=== PATIENT | female | born 1930 | race Caucasian/White ===

== ENCOUNTER 2018-10-03 22:31 | Emergency (ER) | payer MEDICARE, MEDICAID ==
[~2018-10-03] VITALS: Ht 157.5 cm; Wt 48.2 kg
[2018-10-03] MEDS ORDERED: albuterol 2.5 MG/3 ML nebule NEB ONE (22:40)
[2018-10-03] MEDS ORDERED: predniSONE 20 mg tablet PO ONE (22:40)
[2018-10-03 23:27] VITALS: BP 153/63
[2018-10-03] MEDS ORDERED: PRED20TA PO (23:34)
== END 2018-10-03 23:54 | disposition home or self-care (01) ==
LOC: ER 22:32
DX: J44.1 Chronic obstructive pulmonary disease with (acute) exacerbation (principal); Z87.891 Personal history of nicotine dependence; Z95.0 Presence of cardiac pacemaker; Z79.899 Other long term (current) drug therapy
CPT/HCPCS: 71045; 93005; 94640; 94760; 99283; J7512